=== PATIENT | female | born 1980 | race Caucasian/White ===

== ENCOUNTER 2016-04-21 13:36 | Inpatient (IN) | payer OTHER ==
[2016-04-21] MEDS ORDERED: LR 1,000 ML IV PRN (14:00)
[2016-04-21] MEDS ORDERED: MINERAL OIL 60 ML OIL TP PRN (14:00)
[2016-04-21] MEDS ORDERED: LIDOCAINE 1% 30 ML SDV SC PRN (14:00)
[2016-04-21] MEDS ORDERED: OXYTOCIN/RINGERS LACTATE 1,000 ML IV PRN (14:00)
[2016-04-21] MEDS ORDERED: EPSOM SALT 454 GM TP PRN (14:00)
[2016-04-21] MEDS ORDERED: TERBUTALINE SULFATE 1 MG/ML VIAL IV PRN (14:00)
[2016-04-21] MEDS ORDERED: TERBUTALINE SULFATE 1 MG/ML VIAL ONE (14:15)
[2016-04-21] MEDS ORDERED: AMMONIA AROMATIC 1 EACH AMP IH ONE (14:15)
[2016-04-21] MEDS ORDERED: LIDOCAINE 1% 30 ML SDV ONE (14:16)
[2016-04-21] MEDS ORDERED: MISOPROSTOL 200 MCG TAB ONE (14:16)
[2016-04-21] MEDS ORDERED: OXYTOCIN 10 UNIT/ML VIAL ONE (14:16)
[2016-04-21 14:24] LABS: % IMMATURE GRANULYOCYTES 0.5 % (0.0-1.1); ABSOLUTE IMMATURE GRANULOCYTES 0.06 10^3/uL (0.00-0.10); ADD DIFF? NO; ADD MORPH? NO; ADD SCAN? NO; ATYPICAL LYMPHOCYTE FLAG 0 (0-99); FRAGMENT RBC FLAG 0 (0-99); HEMATOCRIT 37.3 % (38.0-47.0); HEMOGLOBIN 13.4 g/dL (12.6-16.3); LEFT SHIFT FLG 0 (0-99); LIPEMIA HEMOLYSIS FLAG 90 (0-99); MEAN CELL HEMOGLOBIN 31.5 pg (27.9-34.1); MEAN CELL HEMOGLOBIN CONCENTR. 35.9 g/dL (32.4-36.7); MEAN CELL VOLUME 87.8 fL (81.5-99.8); MEAN PLATELET VOLUME 10.1 fL (8.7-11.7); PLATELET CLUMPS FLAG 0 (0-99); PLATELET COUNT 185 10^3/uL (150-400); RED BLOOD CELL COUNT 4.25 10^6/uL (4.18-5.33); RED CELL DISTRIBUTION WIDTH 13.2 % (11.5-15.2)
[2016-04-21] MEDS ORDERED: BUPIVACAINE 0.25% 30 ML SDV ONE (16:00)
[2016-04-21] MEDS ORDERED: fentaNYL 2MCG/ML/BUP 0.1% RTU 100 ML BAG EP ONE (16:00)
[2016-04-21] MEDS ORDERED: PHENYLEPHRINE HCL 100 MCG/ML SYR ONE (16:01)
[2016-04-21] MEDS ORDERED: fentaNYL 100 MCG/2 ML INJ ONE (16:02)
--- NOTE | 2016-04-21 16:28 | GHP ---
[f rep st] PREOP HISTORY AND PHYSICAL DATE OF ADMISSION: 04/21/2016 HISTORY OF PRESENT ILLNESS: The patient is a G2, A1, 35-year-old, with an estimated due date of May 01, who presents at 38+ weeks gestation, with active labor. The patient reports contractions started about 6 a.m. and got into a regular pattern with increasing intensity after 10 a.m. The patient denies rupture of membranes upon admission. She had a scant amount of bloody show at home. Good movement. Initial exam by the RNs at [facility] revealed a very soft cervix with difficulty identifying a cervical edge. It was hard to determine if there was only an anterior lip versus a very posterior cervix. It was difficult to assess for dilation. The patient was feeling pelvic pressure, however, this abated a bit. The patient has been using the tub for labor comfort. CARE: The patient has been with [facility] since 8 weeks gestation. The patient has a history of ADHD and panic attacks. In the past she has used Adderall and lorazepam, however, not using them during the . The patient has essentially had an uncomplicated . She had a repeat ultrasound in the 3rd trimester due to an estimated weight at the 98 percentile at 20 weeks. The followup ultrasound revealed a BPD of greater than 98% with a femur length of less than the 2nd percentile. The femur length was more appropriate at the 54th percentile at the 20 week ultrasound. The JACQUELIN was normal. The estimated weight was 7 pounds at the 64th percentile. There was a grade 3 placenta. labs reveal maternal blood type A negative with negative antibody screen. RPR nonreactive. Rubella immune. Hepatitis B surface antigen negative. HIV negative. Cystic fibrosis, SMA, fragile X, all negative. Urinalysis and culture negative. Pap smear normal. Gonorrhea and chlamydia negative. Verified testing was negative. MSAFP was negative. RhoGAM given February 06. GBS culture was negative. Tdap was performed on March 09. PAST MEDICAL HISTORY: History of ASCUS with a negative colposcopy in 2014. In 2010 LGSIL with positive high risk HPV. History of HSV 1. Patient with ADHD and panic attacks, but doing well off medications. PAST SURGICAL HISTORY: TAB in 2011, in 1991 and 1992 right foot granuloma removed. PAST OBSTETRIC HISTORY: In September 2011, a TAB in the 1st trimester. RhoGAM was given at that time. ALLERGIES: The patient has an allergy to sulfa causing hives. CURRENT MEDICATIONS: vitamins and also herbal preparations periodically. SOCIAL HISTORY: The patient is . Lives with her , Alejandro. The patient is a nonsmoker. No alcohol or drug use. PHYSICAL EXAM: GENERAL: Upon admission, the patient is a well-developed, well- nourished, white female, in distress with contractions. The patient is feeling pressure. VITAL SIGNS: As noted in the nursing documentation, normal vitals and the patient is afebrile. heart tones have revealed a category 2 tracing with good reassurance with baseline in the 130s, with moderate variability and accelerations. Also occasional variable decelerations. Contractions every 2-4 minutes. Repeat cervical exam - 2/100/0 station. EXTREMITIES: Nontender with no edema. ASSESSMENT: Intrauterine at 38+ weeks gestation in apparent active labor. GBS negative. PLAN: Repeat cervical exam and prepare for vaginal . /[id number]/MODL MTDD
[2016-04-21] MEDS ORDERED: LR 500 ML IV SCH (17:00)
[2016-04-21] MEDS ORDERED: METHYLERGONOVINE MAL 0.2 MG/ML INJ ONE (21:57)
[2016-04-21] MEDS: IBUPROFEN 600 MG TAB PO PRN (22:37)
[2016-04-21] MEDS ORDERED: ACETAMINOPHEN 325 MG TAB PO PRN (23:36)
[2016-04-21] MEDS ORDERED: DOCUSATE SODIUM 100 MG CAP PO PRN (23:36)
--- NOTE | 2016-04-21 23:41 | OBPROC ---
- Labor and Delivery Onset of Contractions Date: 04/21/16 Onset of Contractions Time: 10:00 Onset of Contractions Type: Spontaneous Rupture of Membranes Date: 04/21/16 Rupture of Membranes Time: 19:07 Rupture of Membranes Type: Artificial Amniotic Fluid Color: Clear Dilation Complete Time: 20:22 Delivery Type: Spontaneous Placenta Delivery Date: 04/21/16 Placenta Delivery Time: 22:06 Episiotomy/Laceration: 1st Degree, Periurethral (bilateral) Repair: Other (Specify) (none needed) EBL: 450 Complications: Other (Specify) (retained placenta with manual extraction and Donald's currettage for small amount retained after extraction) - Medications Labor Augmentation/Induction Meds Used: None Anesthesia: Epidural - Info Infant A Delivery Date: 04/21/16 Delivery Time: 21:32 Sex of : Female Score (1 Min): 8 Score (5 Min): 9
[2016-04-22] MEDS: IBUPROFEN 600 MG TAB PO PRN ×4 (06:29→23:50)
--- NOTE | 2016-04-22 09:30 | OBPROG ---
OBG Progress Note Assessment/Plan: Assessment: 35 y/o PPD #1 s/p doing well. Plan: Begin Bifera QD for anemia. Routine PPC. 04/22/16 09:29 Subjective: Pt is doing well this am. She has min cramping and perineal pain controlled with Ibuprofen. No n/v, min lochia, ambulating and voiding without difficulty. Baby is doing well and they are working on nursing. Objective: 04/22/16 06:35 Patient ABO/Rh A NEGATIVE 04/21/16 23:00 Temp Pulse Resp BP Pulse Ox 36.5 C 70 17 86/51 L 92 04/22/16 01:30 04/22/16 01:30 04/22/16 01:30 04/22/16 01:30 04/22/16 01:30 Uterine Position/Fundal Height: Umbilicus -2 Uterine Tone: Firm - Physical Exam General Appearance: WD/WN, alert, no apparent distress Neck: non-tender, full range of motion, supple Respiratory: chest non-tender, lungs clear, normal breath sounds Cardiac/Chest: regular rate, rhythm Abdomen: normal bowel sounds Extremities: swelling (no), Sherry's sign (neg) ICD10 Worksheet Patient Problems: Problems Problem Status Diagnosed Retained placenta Acute (spontaneous vaginal delivery) Acute
[2016-04-22] MEDS: IRON POLYSAC/IRON HEME 28 MG TAB PO SCH (11:20)
[2016-04-22] MEDS: HYDROCODONE/APAP 5/325 TAB PO PRN ×3 (12:38→22:12)
[2016-04-23] MEDS: HYDROCODONE/APAP 5/325 TAB PO PRN (05:40)
[2016-04-23] MEDS: IBUPROFEN 600 MG TAB PO PRN ×2 (05:41→11:59)
[2016-04-23 09:46] VITALS: PULSE 85; RESP 18
[2016-04-23] MEDS: IRON POLYSAC/IRON HEME 28 MG TAB PO SCH (12:00)
--- NOTE | 2016-04-23 14:24 | SOAPPROG ---
SOAP Progress Note Assessment/Plan: Assessment: ppd@ 2 s/p breast feeding anemia Plan: routine post care iron discharge instructions 04/23/16 14:22 Subjective: patient is doing well. was hoping to stay another night in the hospital but her insurance will not cover it. breast feeding is going well. ambulating. passing gas. normal lochia. denies headache and changes in vision. Objective: Vital Signs Temp Pulse Resp BP Pulse Ox 36.9 C 85 18 101/70 95 04/23/16 09:30 04/23/16 09:30 04/23/16 09:30 04/23/16 09:30 04/23/16 09:30 Laboratory Results 04/22/16 06:35 04/22/16 04/23/16 04/24/16 05:59 05:59 05:59 Output Total 450 Balance -450 Physical Exam - Physical Exam General Appearance: WD/WN, alert, no apparent distress Respiratory: chest non-tender, lungs clear, normal breath sounds Cardiac/Chest: normal peripheral pulses, regular rate, rhythm Abdomen: normal bowel sounds, non-tender, soft, other (fundus firm and non tender) Skin: normal color, warm/dry Extremities: normal range of motion, non-tender, normal inspection, normal capillary refill Neuro/Psych: no motor/sensory deficits, alert, normal mood/affect, oriented x 3 ICD10 Worksheet Patient Problems: Problems Problem Status Diagnosed Retained placenta Acute (spontaneous vaginal delivery) Acute
[2016-04-23 16:49] VITALS: BP 113/76; TEMP 98.4; O2SAT 97
== END 2016-04-23 17:45 | disposition home or self-care (01) | DRG 767 ==
LOC: FLD 13:36 → FOB 04-22 01:00
PROVIDERS: ADMIT Obstetrics & Gynecology; ATTEND Obstetrics & Gynecology
PROC: 0HQ9XZZ Repair Perineum Skin, External Approach (ICD-10-PCS; principal; 2016-04-21)
PROC: 10D17ZZ Extraction of Products of Conception, Retained, Via Natural or Artificial Opening (ICD-10-PCS; principal; 2016-04-21)
PROC: 10E0XZZ Delivery of Products of Conception, External Approach (ICD-10-PCS; principal; 2016-04-21)
DX: O72.2 Delayed and secondary postpartum hemorrhage (principal); O70.0 First degree perineal laceration during delivery; O90.81 Anemia of the puerperium; O09.03 Supervision of pregnancy with history of infertility, third trimester; O09.523 Supervision of elderly multigravida, third trimester; Z86.59 Personal history of other mental and behavioral disorders; Z3A.38 38 weeks gestation of pregnancy; Z37.0 Single live birth
CPT/HCPCS: J0690; J2210; J2370; J2590; J3010; J3105

== ENCOUNTER → 2017-03-22 | Outpatient (CLI) | payer OTHER | LOC: FIMAGING 08:15 | PROVIDERS: ATTEND Advanced Practice Midwife | DX: O09.522 Supervision of elderly multigravida, second trimester (principal); Z3A.19 19 weeks gestation of pregnancy ==

== ENCOUNTER → 2017-04-22 | Outpatient (CLI) | payer OTHER | LOC: FIMAGING 08:03 | PROVIDERS: ATTEND Advanced Practice Midwife | DX: O09.522 Supervision of elderly multigravida, second trimester (principal); R19.8 Other specified symptoms and signs involving the digestive system and abdomen; Z3A.23 23 weeks gestation of pregnancy ==

== ENCOUNTER 2017-08-17 10:37 | Inpatient (IN) | payer OTHER ==
[2017-08-17] MEDS ORDERED: TERBUTALINE SULFATE 1 MG/ML VIAL IV PRN (10:45)
[2017-08-17] MEDS ORDERED: MISOPROSTOL 200 MCG TAB PR PRN (10:45)
[2017-08-17] MEDS ORDERED: LIDOCAINE 1% 300 MG/30 ML SDV SC PRN (10:45)
[2017-08-17] MEDS ORDERED: OLIVE OIL 118 ML BTL MISC PRN (10:45)
[2017-08-17] MEDS ORDERED: IBUPROFEN 600 MG TAB PO PRN (10:45)
[2017-08-17] MEDS ORDERED: EPSOM SALT 454 GM TP PRN (10:45)
[2017-08-17] MEDS ORDERED: OXYTOCIN/RINGERS LACTATE 1,000 ML IV PRN (10:45)
[2017-08-17] MEDS ORDERED: LR 1,000 ML IV PRN (10:45)
[2017-08-17] MEDS ORDERED: TERBUTALINE SULFATE 1 MG/ML VIAL ONE (10:56)
[2017-08-17] MEDS ORDERED: LIDOCAINE 1% 300 MG/30 ML SDV ONE (10:56)
[2017-08-17] MEDS ORDERED: OLIVE OIL 118 ML BTL ONE (10:56)
[2017-08-17] MEDS ORDERED: AMMONIA AROMATIC 1 EACH AMP IH ONE (10:56)
[2017-08-17] MEDS ORDERED: OXYTOCIN 10 UNIT/ML VIAL ONE (10:57)
[2017-08-17] MEDS ORDERED: MISOPROSTOL 200 MCG TAB ONE (10:57)
--- NOTE | 2017-08-17 11:01 | PDGENHP ---
History and Physical History and Physical: CARE: [facility] [place] HPI: Patient is a 37 yo G 3 P 1 at 40.2 weeks ega who presents to L&D with complaints of painful contractions since 0500. She states baby has been active and denies VB/LOF. She has care at [facility] since 8 weeks ega. EDC: 08/15/2017 which is based on LMP: 11/07/2016 which is known and consistent with Ultrasound at 8 weeks. Her is complicated by: 1) AMA 2) Rh neg - rhogam given 06/05 3) Short interval Review of Systems: Constitutional: Denies any fever, chills, or fatigue HEENT: denies any visual changes, difficulty swallowing, hearing loss Cardiovascular: Denies any chest pain, palpitations, leg swelling Respiratory: denies any cough, wheezing, or shortness of breathe GI: Denies any nausea, vomiting, diarrhea, constipation : denies any dysuria, urgency, frequency, vaginal bleeding Musculoskeletal: denies any muscle or bone pain Skin: denies any rashes Neuro: denies any headache, seizures, lightheadedness, dizziness, or loss of consciousness Psychiatric: denies any depression, anxiety, or SI/HI thoughts HISTORY: Previous OB history: TAB 2011, 2017 - retained placenta- manual removal Past medical history: HSV1, h/o ADHD, panic attacks- no current issues Past surgical history: TAB 2011 Medications: PNV, iron Allergies (list reaction): NKDA LABS: Rh: A neg ABS: Neg Rubella: Immune HbsAg: NR HIV: NR VDRL: NR 1hr: 88 GC: Neg Chlamydia: Neg Pap: Normal GBS: neg Genetics: Innatal wnl/standard panel wnl PHYSICAL EXAM: Constitutional: WN, A&Ox3 HEENT: normocephalic atraumatic, supple Heart: RRR, no murmur Chest: CTA-B Abdomen: Soft, nontender, gravid SVE: 8/-1 Extremities: tr edema, negative bill's sign Neuro: grossly normal Psych: normal affect assessment: Reassuring FHTs, baseline 130s +accels, no decels, moderate variability Contractions: toco q 2-3 Assessment: 1) 36 yo G 3 P 1 with IUP@ 40.2 wks ega 2) spontaneous active labor 3) GBS neg 4) Cat 1 FHR tracing 5) desires epidural Plan: 1) Admit to L&D 2) anesthesia notified 3) efw 3500 gm 4) continous efm 5) Anticipate
[2017-08-17 11:03] LABS: PLATELET COUNT 146 10^3/uL (150-400)
[2017-08-17] MEDS ORDERED: BUPIVACAINE 0.25% 30 ML SDV ONE (11:13)
[2017-08-17] MEDS ORDERED: fentaNYL 200 MCG, BUPIVACAINE 0.5% 20 ML in NS 100 ML EP SCH (11:30)
[2017-08-17] MEDS ORDERED: HYDROCODONE/APAP 5/325 TAB PO PRN (11:55)
--- NOTE | 2017-08-17 12:08 | OBDEL ---
Info Type: Vaginal Presentation at Delivery: Vertex L&D Analgesia/Anesthesia Type: None GBS+: No - Care Provider Starch Treating Assistant/FUR TINTER: Denise Wei Indications for Delivery: Spontaneous Labor Vaginal Delivery - Delivery Provider Delivery Physician/CNM: Sandy Pineda - Labor and Delivery Onset of Contractions Date: 08/17/17 Onset of Contractions Time: 05:30 Onset of Contractions Type: Spontaneous Rupture of Membranes Date: 08/17/17 Rupture of Membranes Time: 11:20 Rupture of Membranes Type: Artificial Amniotic Fluid Color: Meconium Stained (thin) Dilation Complete Date: 08/17/17 Dilation Complete Time: 11:18 Placenta Delivery Date: 08/17/17 Placenta Delivery Time: 11:40 Total Hours of Labor: 6 Non-surgical Procedures: Amniotomy Vaginal Sponge Count Correct: Yes Vaginal Needle Count Correct: Yes Vaginal Sweep Performed: No EBL: 200 Delivery Events: None - Medications Labor Augmentation/Induction Methods Used: None [place] Data LUIS: 08/14/17 Gestational Age: 40 week(s) and 3 day(s) Wang Delivery Date: 08/17/17 Delivery Time: 11:24 Sex of : Female Score (1 Min): 8 Score (5 Min): 9 ICD10 Worksheet Patient Problems: Problems Problem Status Onset Retained placenta Acute (spontaneous vaginal delivery) Acute - ICD10 Problem Qualifiers (1) (spontaneous vaginal delivery)
[2017-08-17] MEDS: IBUPROFEN 600 MG TAB PO PRN ×2 (18:19→23:47)
[2017-08-17] MEDS: DOCUSATE SODIUM 100 MG CAP PO PRN (21:37)
[2017-08-18] MEDS: DOCUSATE SODIUM 100 MG CAP PO PRN (08:11)
[2017-08-18] MEDS: IBUPROFEN 600 MG TAB PO PRN (08:11)
[2017-08-18 08:17] VITALS: BP 105/67
[2017-08-18] MEDS ORDERED: IRON POLYSAC/IRON HEME 28 MG TAB PO SCH (10:00)
--- NOTE | 2017-08-18 10:17 | OBPP ---
Progress Note Assessment/Plan: Assessment: PPD 1 s/p mild anemia Plan: Pt desires d/c home, iron daily 08/18/17 10:14 Subjective/ Course: 08/18/17 10:15 Pt doing well. BF well and latch is easy. mod cramps with latching. bld is lessened. urinating fine. Objective: 08/18/17 05:20 Patient ABO/Rh A NEGATIVE 08/17/17 14:00 Temp Pulse Resp BP Pulse Ox 37.0 C 69 16 105/67 94 08/18/17 08:00 08/18/17 08:00 08/18/17 08:00 08/18/17 08:00 08/18/17 08:00 Uterine Position/Fundal Height: Umbilicus -1 Uterine Tone: Firm Physical Exam - Physical Exam Abdomen: non-tender, soft, other (FF at umb -1, lochia normal) Extremities: non-tender, pedal edema (mild) Skin: normal color, warm/dry Neuro/Psych: alert, normal mood/affect
--- NOTE | 2017-08-18 10:24 | OBGCSDC ---
General Delivery Information - General Info : 2 Para: 2 Abortions: 0 Type: Vaginal L&D Analgesia/Anesthesia Type: None Admission Date: 08/17/17 Labs: Patient ABO/Rh A NEGATIVE 08/17/17 14:00 Hct 33.0 % (38.0-47.0) L 08/18/17 05:20 - Hospital Course : 08/18/17 10:15 Pt doing well. BF well and latch is easy. mod cramps with latching. bld is lessened. urinating fine. Vaginal - Delivery Provider Delivery Physician/CNM: Sandy Pineda - Diagnosis Labor: Spontaneous Rupture of Membranes Type: Artificial Amniotic Fluid Color: Meconium Stained (thin) Delivery Events: None - Procedures Non-surgical Procedures: Amniotomy - Delivery Non-surgical Procedures: Amniotomy EBL: 200 Data LUIS: 08/14/17 Gestational Age: 40 week(s) and 4 day(s) Wang Delivery Date: 08/17/17 Delivery Time: 11:24 Sex of Infant: Female Weight (gm): 3420 g Score (1 Min): 8 Score (5 Min): 9 Discharge Information - Discharge Information Condition: Good Instruction/Follow Up: See Instruction Sheet, Four Weeks (with therapist), Six Weeks (with Radha
== END 2017-08-18 13:15 | disposition home or self-care (01) | DRG 775 ==
LOC: FLD 10:37 → UNDOADMIN 10:41 → FOB 15:09
PROVIDERS: ADMIT Advanced Practice Midwife; ATTEND Obstetrics & Gynecology
PROC: 10E0XZZ Delivery of Products of Conception, External Approach (ICD-10-PCS; principal; 2017-08-17)
DX: O77.0 Labor and delivery complicated by meconium in amniotic fluid (principal); O90.81 Anemia of the puerperium; Z37.0 Single live birth; Z3A.40 40 weeks gestation of pregnancy
CPT/HCPCS: J2590; J3010; J3105